=== PATIENT | male | born 1960 | race Caucasian/White ===

== ENCOUNTER 2016-07-18 00:04 | Inpatient (IN) | payer BC ==
[~2016-07-18] VITALS: Ht 177.8 cm; Wt 64.4 kg
--- NOTE | ~2016-07-18 | CO ---
ADMIT: 07/18/2016 RM/LOC: 306 [facility] MR#: [id number] [address] [address] SCARLETTKONRADMAIKOL [address] [place] [address] Consultation SEX: M AGE: 56 : 1960 DATE OF CONSULTATION: 07/18/2016 ATTENDING PHYSICIAN: Brendan Keys CONSULTING PHYSICIAN: Jak Reyes MD REASON FOR CONSULTATION: Stroke. HISTORY OF PRESENT ILLNESS: The patient is a 56-year-old gentleman with past medical history as below, who was brought to [facility] by ambulance with acute onset of left-sided weakness and numbness. This started around 2300 hours last night. As per his , on arrival, his NIH stroke scale was 6. Decision was made to give tPA, which was given. The patient continued to improve almost to the baseline after receiving it. Of note, he had an episode in 2012 for which, he was admitted to [facility] and seen by Dr. Moreno. Unfortunately, the information is archived and cannot be opened through [facility], but since that time, it is known that the patient has patent foramen ovale. PAST MEDICAL HISTORY: Significant for squamous carcinoma of GI, failed cataract surgery, corneal transplant surgery, history of TIA, shoulder scopes, and hernia repair. MEDICATIONS: On outpatient basis include, 1. Lyrica. 2. Wellbutrin. 3. Gabapentin. 4. Fluorometholone. 5. Hydrocodone. 6. Restasis. 7. Glucosamine facial. 8. Multivitamin. ALLERGIES: NO KNOWN DRUG ALLERGIES. FAMILY HISTORY: MS in father, colon cancer in mother, brother had MS in early age. SOCIAL HISTORY: He is current everyday smoker, smokes pack a day. No alcohol. REVIEW OF SYSTEMS: All systems reviewed and negative except as per HPI and headache in addition. PHYSICAL EXAMINATION: VITAL SIGNS: Temperature 97.2, heart rate 71, respirations 16, blood pressure 124/82, saturation 98% on room air. GENERAL: The patient appears to be in no acute discomfort. HEAD: Normocephalic. NECK: Supple. ADMIT: 07/18/2016 RM/LOC: 306 [facility] MR#: [id number] [address] [address] MAIKOL NASCIMENTO [address] [place] [address] Consultation SEX: M AGE: 56 : 1960 CHEST: Normal respiratory rate. CARDIOVASCULAR: Regular rate and rhythm. ABDOMEN: Nondistended. EXTREMITIES: No clubbing or cyanosis. There is development of deformity in his right hand with radial abduction of the wrist and hypoplastic right thumb. NEUROLOGICAL: The patient is awake, appropriately oriented. He has no difficulty with speech. No language. Insight is preserved. Cranial nerves, visual treadwell are intact. Right pupil's defect is not responding to light. He is blind out of right eye. Left eye, normal, pupil are round and reactive to light. Extraocular muscles are intact. Facial sensation is normal. Face is symmetric. Hearing to voice intact. Uvula midline. Palatal arch is symmetric. Shoulder shrug symmetric. Tongue is midline, moveable. Motor examination reveals full strength throughout. No drift. Fine motor movements are intact. Normal tone. Sensory, nonlateralizing to touch. Reflexes are symmetric in upper extremities and knees, reduced in ankles. Toes downgoing. Coordination rnfaiy-id-[id number] is intact. Gait deferred. LABORATORY DATA: Reviewed in electronic medical record. MRI reviewed by myself. Impression reveals embolic looking ischemic stroke in right MCA distribution as well as distal MISAEL. Carotid Doppler, right internal carotid artery without any pathological changes, left proximal internal carotid artery 40% to 59% stenosis. Echocardiogram shows EF of 55% to 60%. Diastolic assessment reveals grade 1 diastolic dysfunction. It appears to be tiny perimembranous ventricular septal defect. The interatrial septum appears aneurysmal. Positive bubble study. Crossing from right to left atrium suggesting PFO or ASD. A1c is 5.8, and LDL is 112. ASSESSMENT: 1. Acute ischemic stroke, status post tPA. The stroke, right MCA, and ADMIT: 07/18/2016 RM/LOC: 306 [facility] MR#: [id number] 2620 [facility] [address] [place], [place] [address] MAIKOL NASCIMENTO [address] [place] [address] Consultation SEX: M AGE: 56 : 1960 distal MISAEL distribution fortunately are currently asymptomatic. Appears to be embolic. 2. Hyperlipidemia. 3. Patent foramen ovale with some aneurysmal changes in the septum. PLAN: The patient will have REID tomorrow for better characterization of the septum. If this is significant anticoagulation, should be used for secondary to stroke prevention; if not significant at all, aspirin would be the first line as he will continue on an outpatient basis. I would like to add DVT scan of bilateral lower extremities. EEG report to follow. Thank you very much for this interesting consultation end dictation. Jak Reyes MD/ evy JOB #: [id number] CC: Brendan Keys, Attending Physician Brendan Keys, Family Physician
--- NOTE | ~2016-07-18 | ECH ---
Transthoracic Echocardiography Report (TTE) Demographics Patient Name MAIKOL NASCIMENTO Date of Study 07/18/2016 Patient Number [id number] Visit Number [id number] Date of 1960 Room Number 306 Accession Number [id number] Gender Male Age 56 year(s) Referring Massimo Watt MD Small Parts Assembler Melissa Dudley Physician RDCS Physician Interpreting Carmen AYALA Gut Cleaner Physician Jatin Supervising Ordering Physician Massimo Watt MD, MD/P Nurse Stress Cartridge Assembler Conclusions Contractility Score Summary Normal Left Ventricular contractility was noted. Summary Technically adequate exam. The estimated left ventricular ejection fraction is 55-60%. Diastolic assessment reveals Grade I diastolic dysfunction. There appears to be a tiny perimembranous ventricular septal defect. The interatrial septum appears aneurysmal. Positive bubble study crossing from right to the left atrium suggesting a PFO or ASD. Consider REID to evaluate septum further if clinically indicated. Recommendation The patient will be given the results of this study by the physician who ordered the exam. Procedure Type of Study TTE procedure:Echo Complete SF. Procedure Date Date: 07/18/2016 Start: 07:46 Technical Quality: Adequate visualization Indications:CVA. Additional Indications:Patient has known PFO by previous bubble study. Appropriate Use Criteria: 9 Height: 70 inches Weight: 140 pounds BSA: 1.79 m Rhythm: NSR HR: 72 bpm BP: 118/66 mmHg M-Mode/2D Measurements LV Diastolic Dimension: 4.4 cm LV Systolic Dimension: 2.99 cm LV Septum Diastolic: 0.81 cm LV PW Diastolic: 0.8 cm AO Root Dimension: 2.7 cm Cardiac Output: 4.38 l/min LA Dimension: 3.16 cm Cardiac Index: 2.45 l/min*m RV Diastolic Dimension: 3.47 cm LA volume index: 18 ml/m LVOT: 1.99 cm LVOT VTI: 19.57 cm RV Base: 3.8 cm LV Stroke volume: 60.84 ml RV Mid: 2.9 cm LV Stroke volume index: 33.99 ml/m TAPSE: 2.2 cm TDI-S': 17 cm/s Doppler Measurements AV Peak Velocity: 1.1 m/s MV Peak E-Wave: 0.6 m/s AV Peak Gradient: 4.84 mmHg MV Peak A-Wave: 0.71 m/s AV Mean Gradient: 3.02 mmHg MV E/A Ratio: 0.85 LVOT Peak Velocity: 0.97 m/s MV P1/2t: 70.5 msec AV Area (Continuity):2.99 cm MV Deceleration Time: 294.2 msec TR Velocity:2.66 m/s MV Area (PHT): 3.12 cm TR Gradient:28.4 mmHg PV Peak Velocity: 0.96 m/s Estimated RAP:3 mmHg PV Peak Gradient: 3.67 mmHg Estimated RVSP: 31 mmHg Estimated PASP: 31.4 mmHg E' Septal Velocity: 0.13 m/s A' Septal Velocity: 0.1 m/s E' Lateral Velocity: 0.1 m/s A' Lateral Velocity: 0.14 m/s RA Area: 11.68 cm Findings Left Ventricle Normal left ventricle size and function. Diastolic assessment reveals Grade I diastolic dysfunction. There appears to be a tiny perimembranous ventricular septal defect. Right Ventricle Normal right ventricle structure and function. Left Atrium Normal left atrial size. The interatrial septum appears aneurysmal. Informed consent was obtained, bubble study was done, bubbles crossed to the left atrium suggesting a PFO or ASD. Right Atrium Normal right atrial size. Mitral Valve Normal mitral valve structure and function. Trivial mitral regurgitation by color Doppler. Aortic Valve The aortic valve is mildly sclerotic. Tricuspid Valve Normal tricuspid valve structure and function. Trivial tricuspid regurgitation by color Doppler. Normal pulmonary pressures. Pulmonic Valve Normal pulmonic valve structure and function. Pericardial Effusion No evidence of pericardial effusion. Miscellaneous Visualized portions of the aortic root and ascending aorta appear normal in size. Pleural Effusion No evidence of pleural effusion. Contractility Score LV regional wall motion:(0-Non visualized 1-Normal 2-Hypokinesis 3-Akinesis 4-Dyskinesis 5-Aneurysm) Signature
--- NOTE | 2016-07-18 05:24 | ER ---
ADMIT: 07/18/2016 RM/LOC: 306 [facility] MR#: [id number] 2620 [facility] [address] [place] [id number] ARLENE NASCIMENTOONY Shukri [address] [place] [address] Emergency Room Report SEX: M AGE: 56 : 1960 DATE: 07/18/2016 CHIEF COMPLAINT: Altered level of consciousness. 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 immediately called 911 when she heard a crash and found her unable to move his left side. The patient has had multiple TIAs in the past, most recent hospitalization in 2012. At that time, he did have subsequent echocardiogram that showed [id number]-[id number] shunt. The patient had an EEG many years ago after his first episode. Most recent healthcare concern has been regarding is a corneal transplant, right eye, and squamous cell carcinoma treatment, left eye. The patient continues to smoke. Family history is positive for stroke. The patient was made stroke alert in the field. Blood sugar was 92 and immediately examined on arrival, moving all extremities, somewhat stuporous. NIH Stroke Scale six on arrival. PAST MEDICAL HISTORY: ALLERGIES: NONE. MEDICATIONS: Please see nurse's MAR. 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 SOCIAL HISTORY: Smokes 1-1/2 packs per day. Occasional alcoholic beverage. No illicit drugs. FAMILY HISTORY: Positive for stroke. REVIEW OF SYSTEMS: A 12-point review of systems is negative for all other systems, illnesses, or operations except as outlined above. PHYSICAL EXAMINATION: VITAL SIGNS: Temp 96.5, pulse 78, respirations 18, BP 146/96, SaO2 of 97% on room air. GENERAL: Obtunded stuporous complaining of headache covering his eyes. HEENT: Normocephalic. No evidence of epistaxis, rhinorrhea, or otorrhea. NECK: Supple. Good carotid upstroke and volume without bruit. CHEST: Clear. Breath sounds equal. HEART: Regular rate and rhythm without murmur, gallop, or edema. ABDOMEN: Soft, nontender, and nondistended without mass or megaly. Bowel sounds hypoactive. EXTREMITIES: Congenital anomaly, right hand. NEURO: NIH Stroke Scale 6, 2 for left lower extremity drift, 1 for left lower ADMIT: 07/18/2016 RM/LOC: 306 [facility] MR#: [id number] [address] [place] [phone] [facility] [place] [address] Emergency Room Report SEX: M AGE: 56 : 1960 extremity ataxia, 2 for profound left-sided sensory deficit, and 1 for extinction tactile, left side. MEDICAL DECISION MAKING: The patient was a stroke alert in the field, persistent sensory and drift noted on the left side. Discussed case with Dr. Stein who agreed with this physician to proceed with thrombolytic therapy. The patient's headache persisted. Due to the patient's presentation, findings, and intervention, 90 minutes of critical care is warranted. DIAGNOSES: 1. Probable cerebrovascular accident, doubt complicated migraine or atypical seizure disorder. 2. Qssch-si-zxxu cardiac shunt on echo 2012. Recommend further evaluation. RECOMMENDATION: Admit inpatient ICU for Dr. Stein. ADMISSION/DISCHARGE CONDITION: Fair. CODE STATUS: The patient is a full code. Clemente Royal MD/ evy JOB #: [id number] CC: Brendan Keys MD, Attending Physician Brendan Keys MD, Family Physician MD Brendan Nolan MD
--- NOTE | 2016-07-19 15:33 | CO ---
ADMIT: 07/18/2016 RM/LOC: 306 [facility] MR#: [id number] 2620 [facility] [address] [place], [place] [address] MAIKOL GRIFFIN [address] [place] [address] Consultation SEX: M AGE: 56 : 1960 DATE OF CONSULTATION: 07/18/2016 ATTENDING PHYSICIAN: Brendan Keys CONSULTING PHYSICIAN: Brian Stover MD REASON FOR CONSULTATION: PFO. HISTORY OF PRESENT ILLNESS: Mr. Griffin is a 56-year-old male whom we are asked to consult at the request of Dr. Keys for the problem of PFO. Per the chart, he had an acute CVA that was lysed. Unable to obtain rest of the history as he is undergoing an EEG currently. PAST MEDICAL HISTORY: Per the chart review Includes squamous carcinoma of the eye, failed cataract surgery that has left him blind, history of TIAs, shoulder scopes, and hernia repair. MEDICATIONS AT TIME OF CONSULTATION: Include: 1. Aspirin 325. 2. Colace 100 b.i.d. 3. Pravachol 40 at bedtime. 4. Pepcid b.i.d. ALLERGIES: NONE KNOWN. FAMILY HISTORY: Father of MA in his 70s. Mother had colon cancer. Brother MA in early age but of suicide. Sister has WPW. 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 Smokes a pack a day. Does not drink. Lives with his and has no children. REVIEW OF SYSTEMS: A full 12-point review of systems attempted but unable to be obtained because of his testing undergoing. PHYSICAL EXAMINATION: VITAL SIGNS: His blood pressure is 135/86 with a pulse of 70 and regular, temp is 97.2. GENERAL: He is a pleasant, well-nourished, well-developed white male. NECK: Shows brisk carotid upstrokes. HEART: Regular. LUNGS: Clear. ABDOMEN: Soft. EXTREMITIES: Show no cyanosis, clubbing, or edema. MUSCULOSKELETAL: Neurologic exam unable to perform because of his EEG. SKIN: Steinauer, warm, and dry. LABORATORY AND X-RAY DATA: EKG shows sinus rhythm with no infarct. His echocardiogram notes preserved ejection fraction with a PFO on bubble study, crossing from the right to the left atrium. Sodium was 144, potassium 4.0, ADMIT: 07/18/2016 RM/LOC: 306 [facility] MR#: [id number] [address] [address] MAIKOL GRIFFIN [facility] [address] [place] [address] Consultation SEX: M AGE: 56 : 1960 BUN 12, and creatinine 0.6. LDL is 112, CK and MB were 488 and 7.7 respectively with a troponin that was normal. TSH was 5.55. White blood cell count 7.5, hemoglobin 16.4, and a platelet count of 265. ASSESSMENT AND PLAN: 1. Patent foramen ovale, known. 2. Acute cerebrovascular accident. 3. Tobacco use. We will not bother the patient at this time, he is currently undergoing an EEG. I do not want to interfere with results. He is known to have a PFO in 2012. We will discuss the case with Dr. Morales to further discuss the possibility of REID with or without closure of this. Brian Stover MD/ evy JOB #: [id number] CC: Brendan Keys, Attending Physician Brendan Keys, Family Physician
[2016-07-21] MEDS ORDERED: FLAREX5 ML OD (17:20)
[2016-07-21] MEDS ORDERED: RESTASIS1 EACH OS (17:21)
[2016-07-21] MEDS ORDERED: WELLBUTRIN XL150 MG PO (17:21)
[2016-07-21] MEDS ORDERED: ASA325 MG PO (17:21)
[2016-07-21] MEDS ORDERED: THERA1 EACH PO (17:21)
[2016-07-21] MEDS ORDERED: PEPCID DPS20 MG PO (17:22)
[2016-07-21] MEDS ORDERED: COLACE-DPS100 MG PO (17:22)
[2016-07-21] MEDS ORDERED: PRAVACHOL40 MG PO (17:22)
[2016-07-21] MEDS ORDERED: NICODERM CQ1 EAC1 TD (17:23)
--- NOTE | 2016-07-27 15:58 | EEG ---
ADMIT: 07/18/2016 RM/LOC: 306 [facility] MR#: [id number] [address] [facility] [address] [place] [id number] MAIKOL NASCIMENTO [address] [place] [address] Inpatient EEG SEX: M AGE: 56 : 1960 DATE: 07/18/2016 EEG NUMBER: [id number]. HISTORY OF PRESENT ILLNESS: The patient is a 56-year-old gentleman with a history of recent stroke. This is a routine 21 channel digital EEG recording performed on a cooperative patient who was awake and drowsy in various portions of the study. The study is performed using the 10/20 international electrode placement system. During wakefulness, the background activity is fairly well organized, consisting of regular and symmetrical medium amplitude 9.5-8 hertz activity seen posteriorly, which attenuates with eye opening. In addition, moderate amount of low-amplitude fast activity is seen anteriorly. During periods of drowsiness, there is further attenuation of the posterior background rhythm to 6-7 hertz activity seen bilaterally. There were no focal slowing nor epileptiform discharges seen in this recording. Hyperventilation was not performed secondary to history of a stroke. Photic stimulation was performed at 1-33 hertz frequency elicited bilateral occipital driving response. IMPRESSION: This is a normal awake and drowsy EEG recording. Normal EEG does not rule out existence of a seizure disorder. Clinical correlation is suggested. COMMENT: Regular cardiac rhythm is noted throughout this recording. Jak Reyes MD/ shandal JOB #: [id number] CC: Brendan Keys MD, Attending Physician Brendan Keys MD, Family Physician
--- NOTE | 2016-08-17 10:53 | HP ---
ADMIT: 07/18/2016 RM/LOC: 306 [facility] MR#: [id number] 2620 [facility] [address] [place] [phone] MAIKOL NASCIMENTO [address] [place] [address] History and Physical SEX: M AGE: 56 : 1960 DATE OF SERVICE: CHIEF COMPLAINT: CVA. CLINICAL HISTORY: Maikol had a usual evening helping a friend repair motor and went to sit in the easy chair, was reclining, dozing, and then his heard him fall out of the chair, broke a glass. Did not hit his head or have any visible trauma, but could not move his left side. This was predominantly his left leg more than his left arm and she brought him in for evaluation. Maikol is a patient, who has had a prior loss of vision in the right eye after a failed cataract. He has been treated for a squamous cell carcinoma of the lid of the eye without recurrence. Previous studies just a few months ago included CT scan of the head and a variety of other studies because of weight loss. None of these found any underlying etiology and his weight has stabilized and he has gained such back. He has no prior history of stroke. In 2012, he had an evaluation at [facility] that suggested he may have a crtl-sr-jhrxf shunt. He was placed on aspirin, but has not taken such. ILLNESSES: None. SOCIAL HISTORY: He works in [employer] and is fully active. Smokes one pack of cigarettes per day. Does not drink. He lives with his . Has no children. FAMILY HISTORY: Father of a myocardial infarction in his 70s. His mother had colon cancer. Brother had AL at an early age, but of a suicide. His sister has Rtqwf-Aqrapydkm-Swpho. REVIEW OF SYSTEMS: He has a headache on the right side. He did not hit his head, however, he does not believe. He has not had any swallowing issues, GERD, peptic ulcer disease, and bleeding. He is up-to-date in his colonoscopies. He denies any voiding difficulties and he denied any chest pain in and around the time of his stroke onset and previously. He was evaluated in 2013 simply because of risk factors and his family. He has never had any manifest chest pain etc. He denies any pulmonary symptoms, but does take some glucosamine for some degenerative joint symptoms in the shoulders and knees. ALLERGIES: NONE. MEDICATIONS: Lyrica dose unknown for shoulder pain (cervical radiculopathy) and Wellbutrin for mild depression. PHYSICAL EXAMINATION: GENERAL: Physical examination reveals a white male, whose only complaint is right-sided headache. He keeps his eyes closed during the examination, but when he opens his eyes, his left pupil is 3 mm and ADMIT: 07/18/2016 RM/LOC: 306 [facility] MR#: [id number] [address] [address] MERVINMAIKOL SILVESTRE [facility] [address] [place] [address] History and Physical SEX: M AGE: 56 : 1960 reactive. The right, however, has large iris defect/coloboma and has decreased visual acuity. HEAD AND NECK: Otherwise unremarkable except for poor dentition. Tongue is midline. Speech is fluent. LUNGS: Clear. HEART: Regular without findings (by history "murmur"). ABDOMEN: Benign without difficulty. He is just avoided, emptied his bladder of approximately 350 mL of clear urine. EXTREMITIES: Unremarkable without deep vein thrombosis, but he does have significant weakness in his left lower leg more than his left upper extremity. Babinski is indeterminate. IMAGING: CT scan by report is negative for any acute intracranial hemorrhage, mass, or tumor. DIAGNOSTIC LABORATORIES: Unremarkable and his current blood pressure is 150/92. IMPRESSION: 1. New onset cerebrovascular accident with left hemiplegia, moderate. 2. Smoking history. 3. Degenerative arthritis. 4. Possible wbpr-ac-dcfch shunt. 5. History of mild depression. 6. Blindness, right eye. 7. Family history of myocardial infarction and colon cancer. TREATMENT: Dr. Royal has instituted tPA for an NIH stroke in a scale of 6. At the current time, he is tolerating such well without bleeding, change in his headache, or alteration in vital signs or rhythm. He will be watched in the intensive care post tPA and we have taken the liberty of starting Vasotec 1.25 mg IV and we will use labetalol and other support based upon his post stroke order sheet. Please see those orders. MRI, carotid ultrasound, and echocardiogram will follow. Brendan Keys MD/ evy JOB #: [id number] CC: Brendan Keys, Attending Physician Brendan Keys, Family Physician
--- NOTE | 2016-10-02 13:37 | DS ---
ADMIT: 07/18/2016 RM/LOC: 429 [facility] MR#: [id number] [address] MAIKOL GRIFFIN [address] [place] [address] Discharge Summary SEX: M AGE: 56 : 1960 ADMISSION DATE: 07/18/2016 DISCHARGE DATE: 07/20/2016 CLINICAL HISTORY: aMikol Griffin was admitted to the hospital with a stroke. He had previous loss of vision in his right eye after a failed cataract and had a history that suggested the possibility of an intracardiac shunt. He has been taking aspirin prior to coming in. Smokes 1 pack of cigarettes per day. 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 I saw him in the emergency room and together with Dr. Royal proposed thrombolytic therapy to he and the family and they agreed to proceed given his significant deficits. Thrombolytics therapy per protocol was instituted and he improved significantly in terms of his neurological deficits. Cardiology saw him subsequently and reconfirmed his patent foramen ovale and Neurology saw him re-confirming his acute ischemic stroke and successful thrombolytic therapy. An echocardiogram of the TTE type appeared to show a tiny perimembranous ventricular septal defect and aneurysmal intra-atrial septum and a positive bubble study. An EEG was normal and EKG showed a rightward axis and right bundle branch block. Venous ultrasounds were negative. Carotid ultrasound showed 40-50% left proximal internal carotid artery plaquing, a negative chest x-ray, and right posterior parietal lobe distribution stroke without complication. REID was attempted but was unable to be performed due to combative patient and therefore was aborted. He became momentarily hypotensive post effort requiring normal saline and a dose of Scotty-Synephrine. Great debate occurred regarding form of anticoagulation and I favored systemic full anticoagulation and discussed this with the patient. We will discuss this further with Cardiology and Neurology. He will follow up with Dr. Eugenia Rojas his regular physician in 1 week, Dr. Morales in 1 month and a factor V Leiden was ordered, that assay was not done, rather a Factor V level was done, which was normal. It would be of interest to screen him for Factor V Leiden defect in view of probably 2 stroke episodes, this one being quite serious. Appropriate records were sent to his physician. MEDICINES: Included: 1. Aspirin 325 mg daily. 2. Colace 100 mg b.i.d. ADMIT: 07/18/2016 RM/LOC: 429 [facility] MR#: [id number] [address] [facility] [place] [address] Discharge Summary SEX: M AGE: 56 : 1960 3. Pepcid 20 mg p.o. b.i.d. 4. Pravachol 40 mg daily. 5. Eye drops right eye one daily. 6. Restasis left eye 1 b.i.d. 7. Habitrol 7 mg daily. As he came into the hospital on aspirin, he leaves the hospital on aspirin and a stroke occurred in the face of aspirin and I believe some other anticoagulation should be considered. Brendan Keys MD/ evy JOB #: [id number] CC: Brendan Kyes MD, Attending Physician Brendan Keys MD, Family Physician Eug[facility] Rojas MD . [facility]
== END 2016-07-20 13:57 | disposition home or self-care (01) | DRG 62 ==
LOC: ER 00:04 → 3ICU 01:45 → 4PCU 07-19 16:51
PROVIDERS: ADMIT Internal Medicine
PROC: 3E03317 Introduction of Other Thrombolytic into Peripheral Vein, Percutaneous Approach (ICD-10-PCS; principal; 2016-07-18)
PROC: 4A10X4Z Monitoring of Central Nervous Electrical Activity, External Approach (ICD-10-PCS; 2016-07-19)
DX: I63.411 Cerebral infarction due to embolism of right middle cerebral artery (principal); G81.94 Hemiplegia, unspecified affecting left nondominant side; I95.9 Hypotension, unspecified; Q21.1 Atrial septal defect; I65.22 Occlusion and stenosis of left carotid artery; E78.5 Hyperlipidemia, unspecified; F17.210 Nicotine dependence, cigarettes, uncomplicated; H54.41 Blindness, right eye, normal vision left eye; M19.90 Unspecified osteoarthritis, unspecified site; F32.9 Major depressive disorder, single episode, unspecified; Z85.828 Personal history of other malignant neoplasm of skin; Z94.7 Corneal transplant status; Z82.49 Family history of ischemic heart disease and other diseases of the circulatory system; Z86.73 Personal history of transient ischemic attack (TIA), and cerebral infarction without residual deficits; Z79.82 Long term (current) use of aspirin

== ENCOUNTER → 2016-07-24 | Outpatient (CLI) | payer BC ==
[~2016-07-24] MED LIST: ASA325 MG PO; COLACE-DPS100 MG PO; FLAREX5 ML OD; NICODERM CQ1 EAC1 TD; PEPCID DPS20 MG PO; PRAVACHOL40 MG PO; RESTASIS1 EACH OS; THERA1 EACH PO; WELLBUTRIN XL150 MG PO
== END | disposition home or self-care (01) ==
LOC: RAD.S 14:30
DX: R07.9 Chest pain, unspecified (principal)